=== PATIENT | male | born 1980 | race African-American/Black ===

== ENCOUNTER 2018-08-24 21:42 | Emergency (ER) | payer OTHER ==
[~2018-08-24] VITALS: Ht 182.9 cm; Wt 77.1 kg
[2018-08-24] MEDS ORDERED: IBUPROFEN600 MG ORAL (22:27)
--- NOTE | 2018-08-24 22:28 | Emergency Room Report ---
History of Present Illness General Chief Complaint: Lower Extremity Injury Source: Patient Present Illness [facility] This is a 37-year-old male with no past medical history. He presents with chief complaint of left thigh pain. He said he was wrestling with his friend 2 days ago. Afterward he felt pain to the left hamstring area. There was some swelling. There were some hardness to that area. Is better now but is still hurting. Worse with walking. Pain is 7 out of 10. No nausea no vomiting. No fever chills. Denies any other complaint. Allergies: Coded Allergies: No Known Allergies (Unverified , 08/24/18) Patient History Past Medical History: see triage record, old chart reviewed Past Surgical History: none Pertinent Family History: none Social History: Reports: smoking Immunizations: other Reviewed Nursing Documentation: PMH: Agreed; PSxH: Agreed Nursing Documentation-PMH Past Medical History: No Stated History Review of Systems Eye: Denies: eye pain, blurred vision ENT: Denies: ear pain, nose congestion, throat swelling Respiratory: Denies: cough, shortness of breath Cardiovascular: Denies: chest pain, palpitations Gastrointestinal: Denies: abdominal pain, diarrhea, nausea, vomiting Musculoskeletal: Reports: muscle pain; Denies: back pain, joint pain Skin: Denies: rash Neurological: Denies: headache, numbness Endocrine: Denies: increased thirst, increased urine Hematologic/Lymphatic: Denies: easy bruising All Other Systems: negative except mentioned in HPI Physical Exam Vital Signs Date Time Temp Pulse Resp B/P (MAP) Pulse Ox O2 Delivery O2 Flow Rate FiO2 08/24/18 21:51 98.4 74 16 117/76 96 Room Air vitals normal Sp02 EP Interpretation: reviewed, normal General Appearance: well appearing, no apparent distress, alert Head: normocephalic, atraumatic Eyes: bilateral eye PERRL, bilateral eye EOMI ENT: hearing grossly normal, normal pharynx Neck: full range of motion, supple, no meningismus Respiratory: chest non-tender, lungs clear, normal breath sounds Cardiovascular #1: regular rate, rhythm, no murmur Gastrointestinal: normal bowel sounds, non tender, no mass, no organomegaly, no bruit, non-distended Musculoskeletal: back normal, gait/station normal, normal range of motion, other - Left leg: There is tenderness to the left hamstring. Mild edema. No ecchymosis. No crepitance. Neurologic: alert, oriented x3 Psychiatric: mood/affect normal Skin: warm/dry Medical Decision Making Diagnostic Impression: Primary Impression: Hamstring muscle strain Qualified Codes: S76.312A - Strain of muscle, fascia and tendon of the posterior muscle group at thigh level, left thigh, initial encounter ER Course Patient with a strain of the left hamstring. He still got good strength. No evidence of complete tear. No evidence of DVT. No evidence of septic joint. We'll discharge home. Last Vital Signs Date Time Temp Pulse Resp B/P (MAP) Pulse Ox O2 Delivery O2 Flow Rate FiO2 08/24/18 21:51 98.4 74 16 117/76 96 Room Air Status: unchanged Disposition: HOME, SELF-CARE Condition: Stable Scripts Ibuprofen* (MOTRIN*) 600 Mg Tablet 600 MG ORAL THREE TIMES A DAY, #30 TAB 0 Refills Prov: Subhash Saini MD 08/24/18 Additional Instructions: Follow-up with your doctor in 7 days. Return if worse. Subhash Saini MD Aug 24, 2018 22:27
--- NOTE | 2018-08-24 22:30 | NUR ---
ED Nurse Note: RECIEVED PT FROM HOME, HERE WITH C/O PULLED MUSCLEON POSTERIOR LEFT THIGH, STATES HE DOES NOT KNOW HOW IT HAPPEND, DENIES INJURY TO AREA, NO DEFORMITY OR BRUISING OR SWELLING NOTED, PT IS FALLING ASLEEP WHILE TALKING, PT ALSO HAS STRONG MARIJUANNA ODOR, ASSISTED TO BED, SEEN BY MD AND DISCHARGED WITH SPOUSE WHOM IS BEING SEEN ALSO, PT LEAVING FACILITY ANGRY STATING HE WANTS SOME MD TANIYA AWARE, PT GIVEN PRESCRIPTIONS FOR PAIN MEDS AND F/U INFO WITH AFTER CARE INSTRUCTIONS, PT ARMBAND REMOVED AND D/C WITH NAD NOTED.
[2018-08-24 22:35] VITALS: BP 117/76
== END 2018-08-24 22:35 | disposition home or self-care (01) ==
LOC: EMR 22:22
DX: S76.312A Strain of muscle, fascia and tendon of the posterior muscle group at thigh level, left thigh, initial encounter (principal); Y93.72 Activity, wrestling
CPT/HCPCS: 99282